=== PATIENT | male | born 1980 | race Native Hawaiian/Other Pacific Islander ===

== ENCOUNTER → 2016-06-11 | Outpatient (CLI) | payer OTHER ==
--- NOTE | 2016-06-11 13:17 | DI ---
INDICATION: ITS.REASON: DIAGNOSTIC IMAGING PROCEDURE: CHEST 2-VIEWS UPRIGHT (PA \T\ LAT) Encounter: Initial COMPARISON: None FINDINGS: The lungs are clear without evidence of focal abnormal airspace opacity. There is no pleural effusion or pneumothorax. The heart size, mediastinal contours and pulmonary vascularity are within normal limits. There is no significant skeletal abnormality. IMPRESSION: No acute cardiopulmonary disease. .
== END ==
LOC: IMA 12:53
DX: Z02.89 Encounter for other administrative examinations (principal)

== ENCOUNTER → 2016-06-14 | Outpatient (CLI) | payer OTHER ==
--- NOTE | 2016-06-15 08:23 | DI ---
Indication: ITS.REASON: DX TESTING PROCEDURE: FOOT LEFT 3 VIEWS: Encounter: Initial Comparison: None Findings: There is no acute fracture, dislocation or malalignment identified. Mild degenerative change in the first metatarsophalangeal joint. Small posterior and inferior calcaneal spurs. Impression: No acute osseous abnormality. .
--- NOTE | 2016-06-15 08:23 | DI ---
Indication: ITS.REASON: DX TESTING PROCEDURE: KNEE RIGHT 2 VIEW: Encounter: Initial Comparison: None Findings: There is no acute fracture, dislocation or malalignment identified. Impression: No acute osseous abnormality. .
--- NOTE | 2016-06-15 08:24 | DI ---
Indication: ITS.REASON: DX TESTING PROCEDURE: FOOT RIGHT 3 VIEWS: Encounter: Initial Comparison: None Findings: There is no acute fracture, dislocation or malalignment identified. Mild to moderate degenerative change in the first metatarsophalangeal joint. Mild degenerative change at the talonavicular joint. Posterior and inferior calcaneal spurs. Impression: No acute osseous abnormality. .
--- NOTE | 2016-06-15 08:26 | DI ---
Indication: ITS.REASON: DX TESTING PROCEDURE: ANKLE RIGHT 2 VIEW: Encounter: Initial Comparison: None Findings: There is no acute fracture, dislocation or malalignment identified. Bowing of the distal fibula could be congenital or due to old trauma. Mild degenerative change in the tibiotalar and talonavicular joints. Impression: No acute osseous abnormality. .
--- NOTE | 2016-06-15 08:26 | DI ---
Indication: ITS.REASON: DX TESTING PROCEDURE: ANKLE LEFT 2 VIEW: Encounter: Initial Comparison: None Findings: There is no acute fracture, dislocation or malalignment identified. Calcaneal spurring. Impression: No acute osseous abnormality. .
--- NOTE | 2016-06-15 08:27 | DI ---
Indication: ITS.REASON: DX TESTING PROCEDURE: LUMBAR SPINE 3 VIEWS: Encounter: Initial Comparison: Read in conjunction with thoracic spine radiographs from the same date. Findings: Alignment of the lumbar spine is within normal limits. No acute fracture or subluxation. The L1 vertebra is not fully included on the AP view. The vertebral body heights are maintained. No significant disk space narrowing. Small anterior osteophytes at the L3-L4 level. Impression: No acute osseous abnormality. .
--- NOTE | 2016-06-15 08:28 | DI ---
Indication: ITS.REASON: DX TESTING PROCEDURE: WRIST RIGHT 3-4 VIEWS: Encounter: Initial Comparison: None Findings: There is no acute fracture, dislocation or malalignment identified. Chronic appearing deformity of the ulnar styloid. Impression: No acute osseous abnormality. .
--- NOTE | 2016-06-15 08:29 | DI ---
Indication: ITS.REASON: DX TESTING PROCEDURE: WRIST LEFT 3-4 VIEWS: Encounter: Initial Comparison: None Findings: There is no acute fracture, dislocation or malalignment identified. Old ununited ulnar styloid fractures. Impression: No acute osseous abnormality. .
--- NOTE | 2016-06-15 08:29 | DI ---
Indication: ITS.REASON: DX TESTING PROCEDURE: THORACIC SPINE 2 VIEW: Encounter: Initial Comparison: None Findings: Alignment of the thoracic spine is within normal limits. The vertebral body heights and disk spaces are maintained. Anterior bridging osteophytes seen in the mid to lower thoracic spine consistent with DISH. Upper thoracic vertebra are not well seen on the lateral view. Impression: No acute osseous abnormality. .
--- NOTE | 2016-06-15 08:30 | DI ---
Indication: ITS.REASON: DX TESTING PROCEDURE: ELBOW LEFT 2 VIEW: Encounter: Initial Comparison: None Findings: There is no acute fracture, dislocation or malalignment identified. Impression: No acute osseous abnormality. .
--- NOTE | 2016-06-15 08:30 | DI ---
Indication: ITS.REASON: DX TESTING PROCEDURE: ELBOW RIGHT 2 VIEW: Encounter: Initial Comparison: None Findings: There is no acute fracture, dislocation or malalignment identified. Impression: No acute osseous abnormality. .
--- NOTE | 2016-06-15 08:34 | DI ---
Indication: ITS.REASON: DX TESTING PROCEDURE: CERVICAL SPINE 4 OR 5 VIEWS: Encounter: Initial Comparison: None Findings: Alignment of the cervical spine is straightened with loss of the normal lordosis. No acute fracture or subluxation. Calcifications in the posterior paraspinal soft tissues adjacent to the C6 spinous process could be due to old trauma. Mild disk space narrowing at C6-C7. The oblique views show evidence of mild neural foraminal narrowing on the right at C6-C7 and on the left at C5-C6 and C6-C7. Odontoid view is normal. Impression: Mild degenerative changes. .
--- NOTE | 2016-06-15 08:35 | DI ---
Indication: ITS.REASON: DX TESTING PROCEDURE: SHOULDER RIGHT 3 VIEWS: Encounter: Initial Comparison: None Findings: There is no acute fracture, dislocation or malalignment identified. Mild degenerative change in the acromioclavicular joint. Mild degenerative change in the inferior glenohumeral joint as well. Impression: No acute osseous abnormality. .
--- NOTE | 2016-06-15 08:35 | DI ---
INDICATION: ITS.REASON: DX TESTING PROCEDURE: CHEST 2-VIEWS UPRIGHT (PA \T\ LAT) Encounter: Initial COMPARISON: June 11, 2016 FINDINGS: The lungs are clear without evidence of focal abnormal airspace opacity. There is no pleural effusion or pneumothorax. The heart size, mediastinal contours and pulmonary vascularity are within normal limits. IMPRESSION: No acute cardiopulmonary disease. .
== END ==
LOC: IMA 16:54
DX: Z02.89 Encounter for other administrative examinations (principal)